=== PATIENT | male | born 1975 | race Caucasian/White ===

== ENCOUNTER 2022-04-23 20:34 | Emergency (ER) | payer MEDICAID ==
[~2022-04-23] VITALS: Ht 172.7 cm; Wt 86.2 kg
[2022-04-23 20:34] VITALS: BP 135/76
--- NOTE | 2022-04-23 20:34 | NUR ---
TO [facility], ELIZA ARCE FOR PREBOOK
[2022-04-23 21:34] VITALS: BP 135/76
--- NOTE | 2022-04-23 21:34 | NUR ---
Patient discharged. Written and verbal after care instructions given and explained. Patient verbalized understanding. Patient in custody by Vicky WHITEHEAD. All questions addressed prior to discharge. Advised to follow up with PMD.
== END 2022-04-23 21:34 | disposition home or self-care (01) ==
LOC: MED 20:34
DX: S43.002A Unspecified subluxation of left shoulder joint, initial encounter (principal); M19.012 Primary osteoarthritis, left shoulder; M19.011 Primary osteoarthritis, right shoulder; X58.XXXA Exposure to other specified factors, initial encounter; Y93.89 Activity, other specified; Y92.89 Other specified places as the place of occurrence of the external cause; Y99.8 Other external cause status
CPT/HCPCS: 73030; 99283; Q0092